=== PATIENT | female | born 1950 ===

== ENCOUNTER 2017-03-06 07:51 | Day surgery (SDC) | payer MEDICARE ==
[2017-02-25 10:37] VITALS: BMI 19.1
[2017-03-06 08:21] VITALS: O2SAT 100
[2017-03-06] MEDS ORDERED: Propofol 10 mg/ml Inj (20 ML) ONE (09:00)
[2017-03-06] MEDS ORDERED: Sodium Chloride 0.9% 1,000 ML IV SCH (10:00)
[2017-03-06 12:21] VITALS: BP 134/70; PULSE 58; RESP 18; TEMP 98
== END 2017-03-06 11:26 | disposition home or self-care (01) ==
LOC: ENDO 07:51
PROVIDERS: ATTEND Internal Medicine Gastroenterology
DX: K29.50 Unspecified chronic gastritis without bleeding (principal); K57.30 Diverticulosis of large intestine without perforation or abscess without bleeding; D50.9 Iron deficiency anemia, unspecified; K64.8 Other hemorrhoids; E78.5 Hyperlipidemia, unspecified; I10 Essential (primary) hypertension
CPT/HCPCS: 43239; 45378; 88305; 88342; J2704; J7040 ×2

== ENCOUNTER 2018-10-08 09:08 | Outpatient (CLI) | payer MEDICARE | END 2018-10-08 09:09 | disposition home or self-care (01) | LOC: LAB 09:08 ==

== ENCOUNTER 2018-10-21 09:07 | Outpatient (CLI) | payer MEDICARE | END 2018-10-21 09:08 | disposition home or self-care (01) | LOC: RAD 09:07 ==

== ENCOUNTER 2018-11-08 12:01 | Emergency (ER) | payer MEDICARE ==
[2018-11-08 12:02] VITALS: BMI 19.1
[2018-11-08 12:17] VITALS: RESP 18; TEMP 98.1
--- NOTE | 2018-11-08 12:42 | ED PDOC ---
Arrival/HPI - General Chief Complaint: Dizziness/Lightheaded Time Seen by Provider: 11/08/18 12:14 Historian: Patient - History of Present Illness Narrative History of Present Illness (Text): 11/08/18 12:42 67 year old female, with past medical history of gastritis and bronchitis, presents to the ED for evaluation of a transient episode of palpitations associated with dizziness this morning. Patient reports contacting Dr. Cady sharp's office and was subsequently referred to the ED for medical evaluation. Patient informs palpitations have currently resolved but expresses mild dizziness/lightheadedness. Patient reports similar symptoms in the past without any medical intervention at the time. Patient denies any difficulty ambulating or any other associated somatic complaints. Patient denies any fevers, chills, headache, chest pain, shortness of breath, dyspnea on exertion, cough, abdominal pain, nausea, vomiting, diarrhea, back pain, neck pain, or any other complaints. Patient denies history of smoking cigarettes or drinking alcohol. PMD: Dr. Estes Time/Duration: 4-6 hours Symptom Onset: Gradual Symptom Course: Improving Activities at Onset: Light Context: Home Past Medical History - Provider Review Nursing Documentation Reviewed: Yes - Infectious Disease Hx of Infectious Diseases: None - Tetanus Immunization Tetanus Immunization: Up to Date - Reproductive Menopause: Yes - Cardiac Hx Pacemaker: No - Pulmonary Hx Respiratory Disorders: Yes Hx Bronchitis: Yes - Neurological Hx Paralysis: No - HEENT Hx HEENT Disorder: No Hx Deafness: No - Renal Hx Renal Disorder: No - Endocrine/Metabolic Hx Endocrine Disorders: No - Hematological/Oncological Hx Blood Transfusions: No - Integumentary Hx Dermatological Disorder: No - Musculoskeletal/Rheumatological Hx Musculoskeletal Disorders: (OSTEOPENIA) - Gastrointestinal Hx Gastrointestinal Disorders: Yes Hx Gastritis: Yes Hx Gastroesophageal Reflux: Yes - Genitourinary/Gynecological Hx Genitourinary Disorders: No - Psychiatric Hx Emotional Abuse: No Hx Physical Abuse: No Hx Substance Use: No - Surgical History Hx Cholecystectomy: Yes Other/Comment: prolapsed bladder, breast reduction - Anesthesia Hx Anesthesia Reactions: No Hx Malignant Hyperthermia: No - Suicidal Assessment Feels Threatened In Home Enviroment: No Family/Social History - Physician Review Nursing Documentation Reviewed: Yes Family/Social History: No Known Family HX Smoking Status: Never Smoked Hx Alcohol Use: No Hx Substance Use: No Hx Substance Use Treatment: No Allergies/Home Meds Allergies/Adverse Reactions: Allergies No Known Allergies Allergy (Verified 10/25/16 10:13) Home Medications: Home Meds Medication Instructions Recorded Confirmed Donepezil [Aricept] 10 mg PO DAILY 02/25/17 11/08/18 RX: Rosuvastatin Calcium 5 mg PO DAILY 02/25/17 11/08/18 Levothyroxine Sodium [Levoxyl] 0 mg PO DAILY 11/08/18 11/08/18 Memantine [Namenda] 0 mg PO DAILY 11/08/18 11/08/18 Review of Systems - Physician Review All systems were reviewed & negative as marked: Yes - Review of Systems Constitutional: absent: Fevers Respiratory: absent: SOB, Cough Cardiovascular: absent: Chest Pain Gastrointestinal: absent: Abdominal Pain, Nausea, Vomiting Genitourinary Female: absent: Dysuria, Urine Output Changes Musculoskeletal: absent: Back Pain, Neck Pain Skin: absent: Rash Neurological: Dizziness. absent: Headache, Focal Weakness Psychiatric: absent: Anxiety Physical Exam Vital Signs Reviewed: Yes Vital Signs Temp Pulse Resp BP Pulse Ox 11/08/18 12:12 98.1 F 72 18 192/76 H 100 Temperature: Afebrile Blood Pressure: Hypertensive Pulse: Regular Respiratory Rate: Normal Appearance: Positive for: Well-Appearing, Non-Toxic, Comfortable Pain Distress: None Mental Status: Positive for: Alert and Oriented X 3 - Systems Exam Head: Present: Atraumatic, Normocephalic Pupils: Present: PERRL Extroacular Muscles: Present: EOMI Conjunctiva: Present: Normal Mouth: Present: Moist Mucous Membranes Neck: Present: Normal Range of Motion. No: Meningeal Signs Respiratory/Chest: Present: Clear to Auscultation, Good Air Exchange. No: Respiratory Distress, Accessory Muscle Use Cardiovascular: Present: Regular Rate and Rhythm, Normal S1, S2. No: Murmurs Abdomen: No: Tenderness, Distention, Peritoneal Signs Back: Present: Normal Inspection. No: CVA Tenderness, Midline Tenderness Upper Extremity: Present: Normal Inspection. No: Cyanosis, Edema Lower Extremity: Present: Normal Inspection. No: Edema Neurological: Present: GCS=15, CN II-XII Intact, Speech Normal, Motor Func Grossly Intact, Normal Sensory Function, Normal Cerebellar Funct, Gait Normal Skin: Present: Warm, Dry, Normal Color. No: Rashes Psychiatric: Present: Alert, Oriented x 3, Normal Insight, Normal Concentration Medical Decision Making ED Course and Treatment: 11/08/18 12:47 Impression: 67 year old female presents to the ED for evaluation of a transient episode of palpitations and dizziness. Dizziness described as lightheadedness. Non-vertigo like. Normal neuro exam. No cerebellar signs. No CP or sob. Pt notes lightheadedness has mostly fully resolved. No fall or trauma. No fever, chills or night sweats. No meningeal signs. No GI or complaints No other complaints. Plan: -- Labs -- Chest X-ray -- EKG -- Reassess and disposition Prior Visits: Notes and results from previous visits were reviewed. Progress Notes: 11/08/18 12:47 EKG reviewed, shows NSR at 67 bpm, No STEMI. 11/08/18 14:20 labs, imaging largely unremarkable. Upon reassessment, patient informs fully resolved symptoms. No complaints of chest pain. Repat neuro exam unremarkable. Patient currently denies any dizziness/lightheadedness and wants to go home. 11/08/18 14:[address] Estes, who is aware and agrees with ED management plan to discharge patient with outpatient follow-up instructions. He notes that he did not send in the patient to be evaluated. 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 - Scribe Statement The provider has reviewed the documentation as recorded by the Scribe Rose Marie Delatorre. All medical record entries made by the Scribe were at my direction and personally dictated by me. I have reviewed the chart and agree that the record accurately reflects my personal performance of the history, physical exam, medical decision making, and the department course for this patient. I have also personally directed, reviewed, and agree with the discharge instructions and disposition. Disposition/Present on Arrival - Present on Arrival Any Indicators Present on Arrival: No History of DVT/PE: No History of Uncontrolled Diabetes: No Urinary Catheter: No History of Decub. Ulcer: No History Surgical Site Infection Following: None - Disposition Have Diagnosis and Disposition been Completed?: Yes Diagnosis: Lightheadedness Disposition: HOME/ ROUTINE Disposition Time: 14:38 Condition: GOOD Discharge Instructions (ExitCare): Dizziness, Nonvertigo, (DC), Palpitations (DC) Additional Instructions: LISA BARBER, thank you for letting us take care of you today. Your provider was Palomo Preston and you were treated for dizzy / fast heart beating. The emergency medical care you received today was directed at your acute symptoms. If you were prescribed any medication, please fill it and take as directed. It may take several days for your symptoms to resolve. Return to the Emergency Department if your symptoms worsen, do not improve, or if you have any other problems. Please contact your doctor or call one of the physicians/clinics you have been referred to that are listed on the Patient Visit Information form that is included in your discharge packet. Bring any paperwork you were given at discharge with you along with any medications you are taking to your follow up visit. Our treatment cannot replace ongoing medical care by a primary care provider outside of the emergency department. Thank you for allowing the [facility] team to be part of your care today. If you had an X-Ray or CT scan: A Radiologist will review the ED reading if any change in treatment is needed we will contact you. If you had a blood, urine, or wound culture: It will take several days for the results, if any change in treatment is needed we will contact you. If you had an STI test: It will take 48 hours for the results. Please call after 1 week if you have not heard back. Referrals: Ricardo Estes MD [Family Provider] - Follow up with primary Forms: [employer] ([place])
--- NOTE | 2018-11-08 13:43 | RAD ---
Date of service: 11/08/2018 HISTORY: lightheaded COMPARISON: 10/25/2016 TECHNIQUE: Chest PA and lateral FINDINGS: LUNGS: No active pulmonary disease. PLEURA: No significant pleural effusion identified. No pneumothorax apparent. CARDIOVASCULAR: No aortic atherosclerotic calcification present. Normal cardiac size. No pulmonary vascular congestion. OSSEOUS STRUCTURES: No significant abnormalities. VISUALIZED UPPER ABDOMEN: Normal. OTHER FINDINGS: None. IMPRESSION: No active disease.
[2018-11-08 13:50] LABS: HEMOGLOBIN 12.8 g/dL (12.0-16.0); MEAN CELL VOLUME 87.5 fl (80.0-105.0); MEAN CORPUSCULAR HGB CONC 33.2 g/dl (31.0-37.0); MEAN PLATELET VOLUME 12.1 fl (7.0-11.0); RBC 4.41 10^6/uL (3.5-6.1); WHITE BLOOD COUNT 6.2 10^3/uL (4.5-11.0)
[2018-11-08 14:05] LABS: ALB/GLOB RATIO 1.1 (1.1-1.8); ALBUMIN 4.4 g/dL (3.0-4.8); ALT/SGPT 21 U/L (7-56); AST/SGOT 36 U/L (14-36); BLOOD UREA NITROGEN 9 mg/dL (7-21); CALCIUM 9.3 mg/dL (8.4-10.5); GFR NON-AFRICAN AMERICAN > 60; TROPONIN I < 0.01 ng/mL
[2018-11-08 14:10] VITALS: BP 159/78; PULSE 67; O2SAT 100
--- NOTE | 2018-11-08 17:07 | CARD ---
APPROVED REPORT Date of service: 11/08/2018 EKG Measurement Heart [id number] <Conclusion> Normal sinus rhythm Normal ECG
== END 2018-11-08 15:03 | disposition home or self-care (01) ==
LOC: ED 12:01
DX: R42 Dizziness and giddiness (principal)